=== PATIENT | female | born 1960 | race African-American/Black ===

== ENCOUNTER → 2016-07-31 | Outpatient (REF) | payer BC | LOC: M SFHCLERA 09:04 | PROVIDERS: ATTEND Family Medicine | DX: E11.9 Type 2 diabetes mellitus without complications (principal); I10 Essential (primary) hypertension ==

== ENCOUNTER → 2016-07-31 | Outpatient (CLI) | payer BC ==
[2016-07-31 18:46] LABS: ANION GAP 8 MEQ/L (8-16); BLOOD UREA NITROGEN 8 MG/DL (7-18); CARBON DIOXIDE LEVEL 29 MEQ/L (21-32); CHLORIDE LEVEL 103 MEQ/L (98-107); CREATININE FOR GFR 0.68 MG/DL (0.55-1.02); GLOMERULAR FILTRATION RATE > 60.0 (>51); GLUCOSE, FASTING 151 MG/DL (70-105); POTASSIUM SERUM 5.1 MEQ/L (3.5-5.1); SODIUM LEVEL 140 MEQ/L (136-145)
== END ==
LOC: M LRY 09:08
DX: I10 Essential (primary) hypertension (principal)

== ENCOUNTER → 2016-08-09 | Outpatient (REF) | payer BC | LOC: M LAB REF 13:08 | PROVIDERS: ATTEND Ophthalmology | DX: D23.12 Other benign neoplasm of skin of left eyelid, including canthus (principal); D23.11 Other benign neoplasm of skin of right eyelid, including canthus ==

== ENCOUNTER → 2016-10-08 | Outpatient (CLI) | payer BC ==
--- NOTE | 2016-10-08 16:16 | REPMRS ---
Patient History The patient states she has not had a clinical breast exam in over a year. Patient is postmenopausal, has history of breast cancer at age 30, and had previous chemotherapy at age 30. Family history of breast cancer in maternal grandmother under age 50. Reconstruction of the right breast. Mastectomy of the right breast. Took hormonal contraceptives for 2 years. Patient states she has lost at least 12 lbs since her last mammo Digital Mammo Screening Bilat: October 08, 2016 - Exam #: [id number] Bilateral CC and MLO view(s) were taken. Technologist: Ludivina Lee, Technologist Prior study comparison: May 09, 2012, left breast diagnostic unilateral mammo, performed at . FINDINGS: The breast tissue is heterogeneously dense. This may lower the sensitivity of mammography. This mammogram was interpreted with the aid of an FDA-approved computer-aided dectection system. A. Negative x-ray reports should not delay biopsy if a dominant or clinically suspicious mass is present. B. Not all cancers are identified by mammography. C. Adenosis and dense breast may obscure an underlying neoplasm. No significant changes when compared with prior studies. Finding: There are typically benign calcifications in both breasts. ASSESSMENT: BI-RADS/ACR category 2 mammogram. Benign finding(s). Recommendation Follow-up diagnostic mammogram in 1 year. Electronically Signed By: Bethel Hernandez M.D. 10/08/16 3401
== END ==
LOC: M RAD 15:40
PROVIDERS: ATTEND Family Medicine
DX: Z12.31 Encounter for screening mammogram for malignant neoplasm of breast (principal); R92.8 Other abnormal and inconclusive findings on diagnostic imaging of breast; Z78.0 Asymptomatic menopausal state; Z85.3 Personal history of malignant neoplasm of breast; Z92.0 Personal history of contraception